=== PATIENT | female | born 1980 | race American Indian/Alaskan Native ===

== ENCOUNTER 2020-06-03 12:38 | Emergency (ER) | payer MEDICAID ==
--- NOTE | 2020-06-03 17:55 | XRay Report ---
XR chest routine 2V INDICATION / CLINICAL INFORMATION: CHEST PAIN COMPARISON: None available. FINDINGS: SUPPORT DEVICES: None. HEART / MEDIASTINUM: No significant abnormality. LUNGS / PLEURA: Lungs are clear. Costophrenic sulci are sharp. No pneumothorax. ADDITIONAL FINDINGS: No significant additional findings. IMPRESSION: 1. No acute findings. Signer Name: Duc Murphy MD Signed: 06/03/2020 5:50 PM Workstation Name: [id number]
[2020-06-03] MEDS ORDERED: ASPIRIN 325 MG TAB PO ONE (18:47)
[2020-06-03 18:48] VITALS: BP 144/78
[2020-06-03 19:20] LABS: Basophils % (Auto) 0.8 % (0.0-1.8); Eosinophils # (Auto) 0.2 K/mm3 (0.0-0.4); Eosinophils % (Auto) 2.9 % (0.0-4.3); Hematocrit 38.9 % (30.3-42.9); Hemoglobin 13.4 gm/dl (10.1-14.3); Lymphocytes % (Auto) 33.9 % (13.4-35.0); Mean Corpuscular HGB Conc 35 % (30-34); Mean Corpuscular Volume 99 fl (79-97); Monocytes # (Auto) 0.4 K/mm3 (0.0-0.8); Monocytes % (Auto) 6.3 % (0.0-7.3); Platelet Count 366 K/mm3 (140-440); Red Blood Count 3.93 M/mm3 (3.65-5.03); Red Cell Distribution Width 12.6 % (13.2-15.2)
[2020-06-03 19:42] LABS: BUN/Creatinine Ratio 18; Blood Urea Nitrogen 14 mg/dL (7-17); Hemolysis Index 1
== END 2020-06-03 19:30 | disposition home or self-care (01) ==
LOC: ED 12:38
DX: R07.89 Other chest pain (principal); Z53.21 Procedure and treatment not carried out due to patient leaving prior to being seen by health care provider
CPT/HCPCS: 36415; 71046; 80048; 84484; 85025; 93005

== ENCOUNTER 2020-11-09 14:16 | Emergency (ER) | payer MEDICARE, MEDICAID ==
[2020-11-09 14:31] VITALS: BP 127/74
[2020-11-09] MEDS ORDERED: OXYMETAZOLINE 0.05% NASAL SPRAY NS ONE (14:43)
[2020-11-09 15:02] LABS: Basophils % (Auto) 0.5 % (0.0-1.8); Eosinophils # (Auto) 0.4 K/mm3 (0.0-0.4); Eosinophils % (Auto) 5.9 % (0.0-4.3); Hematocrit 35.4 % (30.3-42.9); Hemoglobin 12.2 gm/dl (10.1-14.3); Lymphocytes # (Auto) 1.5 K/mm3 (1.2-5.4); Lymphocytes % (Auto) 21.3 % (13.4-35.0); Mean Corpuscular HGB Conc 34 % (30-34); Mean Corpuscular Volume 98 fl (79-97); Monocytes # (Auto) 0.8 K/mm3 (0.0-0.8); Platelet Count 346 K/mm3 (140-440); Red Blood Count 3.62 M/mm3 (3.65-5.03)
[2020-11-09 15:12] LABS: INR 0.96 (0.87-1.13); Partial Thromboplastin Time 31.6 Sec. (24.2-36.6)
[2020-11-09 15:22] LABS: Alanine Aminotransferase 15 units/L (7-56); BUN/Creatinine Ratio 14; Blood Urea Nitrogen 13 mg/dL (7-17); Calcium 8.9 mg/dL (8.4-10.2); Hemolysis Index 5
--- NOTE | 2020-11-09 15:35 | Emergency Department Report ---
ED ENT HPI - General Chief complaint: Nosebleed Stated complaint: NOSE BLEED Time Seen by Provider: 11/09/20 14:38 Source: patient Mode of arrival: Ambulatory Limitations: No Limitations - History of Present Illness Initial comments: Patient is a 40-year-old female presents emergency room complaints of intermittent nosebleed that began on 10/23/2020. She states at that time she was talking to her mother about a sensitive subject and she got upset and was crying and states that the nosebleed then began. She states it lasted for approximately an hour. She states that she went to urgent care at that time and was referred to footwear production machine operator. She states that she was supposed to have an appointment with the ENT doctor but she did not get there in time and her appointment was canceled and that was on 11/07/2020. She states that on 11/07/2020 she had a nosebleed again that day that lasted approximately 45 minutes. She states today she began to have a nosebleed again that lasted for approximately 20 minutes. She is not currently using anything for nosebleeds. She is not on Afrin. Past medical history of anemia. No allergies to medications. Last menstrual cycle 2 weeks ago. No history of transfusions. - Related Data Previous Rx's Medication Instructions Recorded Last Taken Type Cyclobenzaprine [Flexeril 10mg] 10 mg PO TID PRN #10 tablet 11/08/14 Unknown Rx HYDROcodone/APAP 5-325 [Harman 1 - 2 each PO Q6HR PRN #14 tablet 11/08/14 Unknown Rx 5/325] Ibuprofen [Motrin 800 MG tab] 800 mg PO TID PRN #20 tablet 11/08/14 Unknown Rx Ketorolac [Toradol] 10 mg PO Q6H PRN #10 tablet 06/03/20 Unknown Rx Allergies Allergy/AdvReac Type Severity Reaction Status Date / Time No Known Allergies Allergy Unverified 11/08/14 07:59 ED Dental HPI - General Chief complaint: Nosebleed Stated complaint: NOSE BLEED Time Seen by Provider: 11/09/20 14:38 Source: patient Mode of arrival: Ambulatory Limitations: No Limitations - Related Data Previous Rx's Medication Instructions Recorded Last Taken Type Cyclobenzaprine [Flexeril 10mg] 10 mg PO TID PRN #10 tablet 11/08/14 Unknown Rx HYDROcodone/APAP 5-325 [Harman 1 - 2 each PO Q6HR PRN #14 tablet 11/08/14 Unknown Rx 5/325] Ibuprofen [Motrin 800 MG tab] 800 mg PO TID PRN #20 tablet 11/08/14 Unknown Rx Ketorolac [Toradol] 10 mg PO Q6H PRN #10 tablet 06/03/20 Unknown Rx Allergies Allergy/AdvReac Type Severity Reaction Status Date / Time No Known Allergies Allergy Unverified 11/08/14 07:59 ED Review of Systems ROS: Stated complaint: NOSE BLEED Other details as noted in HPI Comment: All other systems reviewed and negative ED Past Medical Hx - Past Medical History Hx Hypertension: Yes Hx Arthritis: Yes - Surgical History Additional Surgical History: Left wrist surgery - Social History Smoking Status: Never Smoker - Medications Home Medications: Home Medications Medication Instructions Recorded Confirmed Last Taken Type Cyclobenzaprine [Flexeril 10mg] 10 mg PO TID PRN #10 tablet 11/08/14 Unknown Rx HYDROcodone/APAP 5-325 [Harman 1 - 2 each PO Q6HR PRN #14 tablet 11/08/14 Unknown Rx 5/325] Ibuprofen [Motrin 800 MG tab] 800 mg PO TID PRN #20 tablet 11/08/14 Unknown Rx Ketorolac [Toradol] 10 mg PO Q6H PRN #10 tablet 06/03/20 Unknown Rx ED Physical Exam - General Limitations: No Limitations General appearance: alert, in no apparent distress - Head Head exam: Present: atraumatic, normocephalic - Eye Eye exam: Present: normal appearance - ENT ENT exam: Present: mucous membranes moist, other (dried blood present to the right naris, no active bleeding, no signs of polyps, no blood in the oropharynx) - Respiratory Respiratory exam: Present: normal lung sounds bilaterally. Absent: respiratory distress, wheezes, rales, rhonchi, stridor, chest wall tenderness, accessory muscle use, decreased breath sounds, prolonged expiratory - Cardiovascular Cardiovascular Exam: Present: regular rate, normal rhythm, normal heart sounds. Absent: systolic murmur, diastolic murmur, rubs, gallop - Neurological Exam Neurological exam: Present: alert, oriented X3 - Psychiatric Psychiatric exam: Present: normal affect, normal mood - Skin Skin exam: Present: warm, dry, intact ED Course Vital Signs 11/09/20 11/09/20 14:25 16:30 Temperature 98.6 F Pulse Rate 111 H 92 H Respiratory 15 Rate Blood Pressure 127/74 O2 Sat by Pulse 99 Oximetry ED Medical Decision Making - Lab Data Result diagrams: 11/09/20 14:51 11/09/20 14:51 Lab Results 11/09/20 11/09/20 11/09/20 Range/Units 14:51 14:51 14:51 WBC 6.8 (4.5-11.0) K/mm3 RBC 3.62 L (3.65-5.03) M/mm3 Hgb 12.2 (10.1-14.3) gm/dl Hct 35.4 (30.3-42.9) % MCV 98 H (79-97) fl MCH 34 H (28-32) pg MCHC 34 (30-34) % RDW 13.0 L (13.2-15.2) % Plt Count 346 (140-440) K/mm3 Lymph % (Auto) 21.3 (13.4-35.0) % Lamb % (Auto) 11.0 H (0.0-7.3) % Eos % (Auto) 5.9 H (0.0-4.3) % Baso % (Auto) 0.5 (0.0-1.8) % Lymph # (Auto) 1.5 (1.2-5.4) K/mm3 Lamb # (Auto) 0.8 (0.0-0.8) K/mm3 Eos # (Auto) 0.4 (0.0-0.4) K/mm3 Baso # (Auto) 0.0 (0.0-0.1) K/mm3 Seg Neutrophils % 61.3 (40.0-70.0) % Seg Neutrophils # 4.2 (1.8-7.7) K/mm3 PT 12.7 (12.2-14.9) Sec. INR 0.96 (0.87-1.13) APTT 31.6 (24.2-36.6) Sec. Sodium 137 (137-145) mmol/L Potassium 4.2 (3.6-5.0) mmol/L Chloride 101.9 (98-107) mmol/L Carbon Dioxide 28 (22-30) mmol/L Anion Gap 11 mmol/L BUN 13 (7-17) mg/dL Creatinine 0.9 (0.6-1.2) mg/dL Estimated GFR > 60 ml/min BUN/Creatinine Ratio 14 % Glucose 94 (65-100) mg/dL Calcium 8.9 (8.4-10.2) mg/dL Total Bilirubin < 0.20 (0.1-1.2) mg/dL AST 15 (5-40) units/L ALT 15 (7-56) units/L Alkaline Phosphatase 99 (35-129) units/L Total Protein 6.6 (6.3-8.2) g/dL Albumin 4.0 (3.9-5) g/dL Albumin/Globulin Ratio 1.5 % Vital Signs 11/09/20 11/09/20 14:25 16:30 Temperature 98.6 F Pulse Rate 111 H 92 H Respiratory 15 Rate Blood Pressure 127/74 O2 Sat by Pulse 99 Oximetry - Medical Decision Making Patient is a 40-year-old female presents emergency room complaints of intermittent nosebleed that began on 10/23/2020. She states at that time she was talking to her mother about a sensitive subject and she got upset and was crying and states that the nosebleed then began. She states it lasted for approximately an hour. She states that she went to urgent care at that time and was referred to footwear production machine operator. She states that she was supposed to have an appointment with the ENT doctor but she did not get there in time and her appointment was canceled and that was on 11/07/2020. She states that on 11/07/2020 she had a nosebleed again that day that lasted approximately 45 minutes. She states today she began to have a nosebleed again that lasted for approximately 20 minutes. She is not currently using anything for nosebleeds. She is not on Afrin. Past medical history of anemia. No allergies to medications. Last menstrual cycle 2 weeks ago. No history of transfusions. Initial vitals with tachycardia which improved upon repeat prior to discharge. On exam:dried blood present to the right naris, no active bleeding, no signs of polyps, no blood in the oropharynx. Labs are stable. H&H is normal. 1 spray of Afrin placed by nurse. Patient has no active bleeding. Discussed the importance of ENT follow-up. Advised patient When you begin to have a nosebleed, please pinch your nose tightly for 10 minutes and set an alarm. After holding pressure may use 1 spray of Afrin present to the affected nare and place a small amount of gauze. Only use Afrin once a day and only use if you have a nosebleed. Follow-up with an footwear production machine operator. It is very important that you follow-up. Return to emergency room for any new or worsening symptoms. Critical care attestation.: If time is entered above; I have spent that time in minutes in the direct care of this critically ill patient, excluding procedure time. ED Disposition Clinical Impression: Epistaxis Disposition: DC- TO HOME OR SELFCARE Is pt being admited?: No Does the pt Need Aspirin: No Condition: Stable Instructions: Nosebleed, Adult Additional Instructions: When you begin to have a nosebleed, please pinch your nose tightly for 10 minutes and set an alarm. After holding pressure may use 1 spray of Afrin present to the affected nare and place a small amount of gauze. Only use Afrin once a day and only use if you have a nosebleed. Follow-up with an footwear production machine operator. It is very important that you follow-up. Return to emergency room for any new or worsening symptoms. Referrals: BALDEMAR FIGUEROA MD [Referring] - 2-3 Days SENG CHAPA MD [Staff Physician] - 2-3 Days Time of Disposition: 15:34 Print Language: [place]
== END 2020-11-09 16:31 | disposition home or self-care (01) ==
LOC: ED 14:16
DX: R04.0 Epistaxis (principal); I10 Essential (primary) hypertension; M19.91 Primary osteoarthritis, unspecified site; Z98.890 Other specified postprocedural states; Z79.1 Long term (current) use of non-steroidal anti-inflammatories (NSAID); Z79.899 Other long term (current) drug therapy
CPT/HCPCS: 36415; 80053; 85025; 85610; 85730